=== PATIENT | male | born 1985 | race Caucasian/White ===

== ENCOUNTER 2018-07-23 16:08 | Emergency (ER) | payer MEDICAID ==
[2018-07-23] MEDS ORDERED: Sodium Chloride 0.9% 1,000 ML IV ONE (16:11)
[2018-07-23] MEDS ORDERED: Ondansetron 4 MG/2 ML SDV IVPUSH ONE (16:11)
--- NOTE | 2018-07-23 16:21 | EDM.PDOC ---
ED HPI GENERAL MEDICAL PROBLEM - General Stated Complaint: CAN'T KEEP NOTHING DOWN FOR A FEW DAYS Time Seen by Provider: 07/23/18 16:21 Source of Information: Reports: Patient History Limitations: Reports: No Limitations - History of Present Illness INITIAL COMMENTS - FREE TEXT/NARRATIVE: HISTORY AND PHYSICAL: History of present illness: Patient is a 33-year-old male who presents to the emergency room today with complaints of abdominal pain, nausea and vomiting 5 days. The mother states he takes multiple medications for his mental health problems, has not been able to take these medications due to his nausea and vomiting. She states that this morning he was able to eat his lunch without vomiting. He states he does feel somewhat better and rates his pain at a 2 out of 10. Mom expresses concern that he may have appendicitis. She states "this is how my appendicitis started". Patient reports he has not had a bowel movement in 4 days, which he attributes to having all to no food over the last several days. He denies any fever, chills, chest pain, shortness of breath or cough. Denies noting any diarrhea or blood in his stools. Recent injury, trauma or falls. Review of systems: As per history of present illness and below otherwise all systems reviewed and negative. Past medical history: As per history of present illness and as reviewed below otherwise noncontributory. Surgical history: As per history of present illness and as reviewed below otherwise noncontributory. Social history: No reported history of drug or alcohol abuse. Family history: As per history of present illness and as reviewed below otherwise noncontributory. Physical exam: General: Well-developed and well-nourished 33-year-old male. Alert and oriented. Nontoxic appearing and in no acute distress. HEENT: Atraumatic, normocephalic, pupils equal and reactive bilaterally, negative for conjunctival pallor or scleral icterus, mucous membranes moist, throat clear, neck supple, nontender, trachea midline. No drooling or trismus noted. No meningeal signs Lungs: Clear to auscultation, breath sounds equal bilaterally, chest nontender. Heart: S1S2, regular rate and rhythm without overt murmur Abdomen: Soft, nondistended, nontender. Negative for masses or hepatosplenomegaly. Negative for costovertebral tenderness. Pelvis: Stable nontender. Genitourinary: Deferred. Rectal: Deferred. Skin: Intact, warm, dry. No lesions or rashes noted. Extremities: Atraumatic, negative for cords or calf pain. Neurovascular unremarkable. Neuro: Awake, alert, oriented. Cranial nerves II through XII unremarkable. Cerebellum unremarkable. Motor and sensory unremarkable throughout. Exam nonfocal. Notes: Patient has an elevated white count of 20.10. I did order a CT of the abdomen and pelvis at this time. Other labs at this time are unremarkable. [facility] interventional radiology called: CT of the abdomen and pelvis shows a ruptured appendicitis with an interloop abscess measuring 3.[address] Claudio was consult did on this case. She states that she will be coming in to evaluate this patient. Patient and mother were made aware of the CT findings. 1820: Dr Claudio here to see patient. Cultures have been obtained. IV Zosyn ordered Diagnostics: CBC, CMP, UA, CT abdomen/pelvis, BC x2, lactic Therapeutics: IV fluid, Zofran, Zosyn Impression: Acute ruptured appendicitis Interloop abscess Definitive disposition and diagnosis as appropriate pending reevaluation and review of above. generalized abd Pain Score (Numeric/FACES): 2 - Related Data Allergies Allergy/AdvReac Type Severity Reaction Status Date / Time No Known Allergies Allergy Verified 07/23/18 16:39 Home Meds: Home Meds Citalopram [Citalopram HBr] 20 mg PO DAILY 07/23/18 [History] Mirtazapine [Remeron] 0.5 g PO DAILY 07/23/18 [History] Omeprazole 40 mg PO DAILY 07/23/18 [History] Sennosides/Docusate Sodium [Senna Laxative Tablet] 4 tab PO DAILY 07/23/18 [ History] cloZAPine [Clozaril] 400 mg PO BID 07/23/18 [History] ED ROS GENERAL - Review of Systems Review Of Systems: ROS reveals no pertinent complaints other than HPI. ED EXAM, GENERAL - Physical Exam Exam: See Below (See dictation) Course - Vital Signs Last Recorded V/S: Last Vital Signs Temp 97.6 F 07/23/18 16:40 Pulse 80 07/23/18 16:40 Resp 16 07/23/18 16:40 BP 125/65 07/23/18 16:40 Pulse Ox 98 07/23/18 16:40 - Orders/Labs/Meds Orders: Active Orders 24 hr Category Date Time Status Abdomen Pelvis w Cont [CT] Stat Exams 07/23/18 16:50 Taken CULTURE BLOOD [BC] Stat Lab 07/23/18 18:27 Ordered CULTURE BLOOD [BC] Stat Lab 07/23/18 18:27 Ordered LACTATE WITH REFLEX [BG] Stat Lab 07/23/18 18:27 Ordered Piperacillin/Tazobactam [Piperacil-Tazobact] 3.375 gm Med 07/23/18 18:27 Active Sodium Chloride 0.9% [Normal Saline] 50 ml IV ONETIME Blood Culture x2 Reflex Set [OM.PC] Stat Oth 07/23/18 18:27 Ordered Medication Orders Piperacillin Sod/Tazobactam (Sod 3.375 gm/ Sodium Chloride) 50 mls @ 100 mls/ hr IV ONETIME ONE Stop: 07/23/18 18:56 Last Admin: 07/23/18 18:41 Dose: 100 mls/hr Labs: Laboratory Tests 07/23/18 07/23/18 07/23/18 Range/Units 16:20 16:20 16:20 WBC 20.10 H (4.0-11.0) K/uL RBC 4.45 L (4.50-5.90) M/uL Hgb 13.0 (13.0-17.0) g/dL Hct 38.1 (38.0-50.0) % MCV 85.6 (80.0-98.0) fL MCH 29.2 (27.0-32.0) pg MCHC 34.1 (31.0-37.0) g/dL RDW Std Deviation 42.5 (28.0-62.0) fl RDW Coeff of Rufino 14 (11.0-15.0) % Plt Count 257 (150-400) K/uL MPV 8.90 (7.40-12.00) fL Add Manual Diff YES Neutrophils % (Manual) 65 (48.0-80.0) % Band Neutrophils % 8 % Lymphocytes % (Manual) 20 (16.0-40.0) % Monocytes % (Manual) 6 (0.0-15.0) % Eosinophils % (Manual) 1 (0.0-7.0) % Nucleated RBC % 0.0 /100WBC Absolute Seg Neuts 13.1 H (1.4-5.7) Band Neutrophils # 1.6 Lymphocytes # (Manual) 4.0 H (0.6-2.4) Monocytes # (Manual) 1.2 H (0.0-0.8) Eosinophils # (Manual) 0.2 (0.0-0.7) Nucleated RBCs # 0 K/uL Sodium 133 L (136-148) mmol/L Potassium 3.5 (3.5-5.1) mmol/L Chloride 96 L (98-107) mmol/L Carbon Dioxide 30.2 (21.0-32.0) mmol/L BUN 17 (7.0-18.0) mg/dL Creatinine 1.1 (0.8-1.3) mg/dL Est Cr Clr Drug Dosing TNP Estimated GFR (MDRD) > 60.0 ml/min Glucose 128 H (74-106) mg/dL Calcium 9.4 (8.5-10.1) mg/dL Total Bilirubin 0.3 (0.2-1.0) mg/dL AST 49 H (15-37) IU/L ALT 61 (14-63) IU/L Alkaline Phosphatase 168 H (46-116) U/L Total Protein 7.5 (6.4-8.2) g/dL Albumin 3.3 L (3.4-5.0) g/dL Globulin 4.2 H (2.0-3.5) g/dL Albumin/Globulin Ratio 0.8 L (1.3-2.8) Amylase 57 (25-115) U/L Lipase 261 (73-393) U/L Urine Color Urine Appearance Urine pH (5.0-8.0) Ur Specific [place] (1.001-1.035) Urine Protein (NEGATIVE) mg/dL Urine Glucose (UA) (NEGATIVE) mg/dL Urine Ketones (NEGATIVE) mg/dL Urine Occult Blood (NEGATIVE) Urine Nitrite (NEGATIVE) Urine Bilirubin (NEGATIVE) Urine Urobilinogen (<2.0) EU/dL Ur Leukocyte Esterase (NEGATIVE) Urine RBC (0-2/HPF) Urine WBC (0-5/HPF) Ur Epithelial Cells (NONE-FEW) Ur Renal Epithelial Cell Urine Bacteria (NEGATIVE) 07/23/18 Range/Units 18:10 WBC (4.0-11.0) K/uL RBC (4.50-5.90) M/uL Hgb (13.0-17.0) g/dL Hct (38.0-50.0) % MCV (80.0-98.0) fL MCH (27.0-32.0) pg MCHC (31.0-37.0) g/dL RDW Std Deviation (28.0-62.0) fl RDW Coeff of Rufino (11.0-15.0) % Plt Count (150-400) K/uL MPV (7.40-12.00) fL Add Manual Diff Neutrophils % (Manual) (48.0-80.0) % Band Neutrophils % % Lymphocytes % (Manual) (16.0-40.0) % Monocytes % (Manual) (0.0-15.0) % Eosinophils % (Manual) (0.0-7.0) % Nucleated RBC % /100WBC Absolute Seg Neuts (1.4-5.7) Band Neutrophils # Lymphocytes # (Manual) (0.6-2.4) Monocytes # (Manual) (0.0-0.8) Eosinophils # (Manual) (0.0-0.7) Nucleated RBCs # K/uL Sodium (136-148) mmol/L Potassium (3.5-5.1) mmol/L Chloride (98-107) mmol/L Carbon Dioxide (21.0-32.0) mmol/L BUN (7.0-18.0) mg/dL Creatinine (0.8-1.3) mg/dL Est Cr Clr Drug Dosing Estimated GFR (MDRD) ml/min Glucose (74-106) mg/dL Calcium (8.5-10.1) mg/dL Total Bilirubin (0.2-1.0) mg/dL AST (15-37) IU/L ALT (14-63) IU/L Alkaline Phosphatase (46-116) U/L Total Protein (6.4-8.2) g/dL Albumin (3.4-5.0) g/dL Globulin (2.0-3.5) g/dL Albumin/Globulin Ratio (1.3-2.8) Amylase (25-115) U/L Lipase (73-393) U/L Urine Color YELLOW Urine Appearance SLT CLOUDY Urine pH 7.0 (5.0-8.0) Ur Specific [place] <= 1.005 (1.001-1.035) Urine Protein NEGATIVE (NEGATIVE) mg/dL Urine Glucose (UA) NEGATIVE (NEGATIVE) mg/dL Urine Ketones NEGATIVE (NEGATIVE) mg/dL Urine Occult Blood LARGE H (NEGATIVE) Urine Nitrite POSITIVE H (NEGATIVE) Urine Bilirubin NEGATIVE (NEGATIVE) Urine Urobilinogen 1.0 (<2.0) EU/dL Ur Leukocyte Esterase TRACE (NEGATIVE) Urine RBC 15-20 (0-2/HPF) Urine WBC 5-10 (0-5/HPF) Ur Epithelial Cells OCCASIONAL (NONE-FEW) Ur Renal Epithelial Cell RARE Urine Bacteria 4+ H (NEGATIVE) Meds: Medications Generic Name Dose Route Start Last Admin Trade Name Freq PRN Reason Stop Dose Admin Piperacillin Sod/Tazobactam 50 mls @ 100 mls/hr 07/23/18 18:27 07/23/18 18:41 Sod 3.375 gm/ Sodium Chloride IV 07/23/18 18:56 100 mls/hr ONETIME ONE Administration Discontinued Medications Generic Name Dose Route Start Last Admin Trade Name Freq PRN Reason Stop Dose Admin Sodium Chloride 1,000 mls @ 999 mls/hr 07/23/18 16:11 07/23/18 16:37 Normal Saline IV 07/23/18 17:11 999 mls/hr STAT ONE Administration Iopamidol 100 ml 07/23/18 17:38 07/23/18 17:39 Isovue Multipack-370 (76%) IVPUSH 07/23/18 17:39 100 ml ONETIME STA Administration Ondansetron HCl 4 mg 07/23/18 16:11 07/23/18 16:37 Zofran IVPUSH 07/23/18 16:12 4 mg ONETIME ONE Administration Departure - Departure Time of Disposition: 18:45 Disposition: Still A Patient 32 Clinical Impression: Acute appendicitis with rupture - Discharge Information Referrals: PCP,None [Primary Care Provider] - - My Orders Last 24 Hours: My Active Orders 07/23/18 16:50 Abdomen Pelvis w Cont [CT] Stat 07/23/18 18:27 CULTURE BLOOD [BC] Stat CULTURE BLOOD [BC] Stat LACTATE WITH REFLEX [BG] Stat Piperacillin/Tazobactam [Piperacil-Tazobact] 3.375 gm Sodium Chloride 0.9% [ Normal Saline] 50 ml IV ONETIME Blood Culture x2 Reflex Set [OM.PC] Stat - Assessment/Plan Last 24 Hours: My Active Orders 07/23/18 16:50 Abdomen Pelvis w Cont [CT] Stat 07/23/18 18:27 CULTURE BLOOD [BC] Stat CULTURE BLOOD [BC] Stat LACTATE WITH REFLEX [BG] Stat Piperacillin/Tazobactam [Piperacil-Tazobact] 3.375 gm Sodium Chloride 0.9% [ Normal Saline] 50 ml IV ONETIME Blood Culture x2 Reflex Set [OM.PC] Stat
[2018-07-23 16:44] LABS: CHLORIDE,CL 96 mmol/L (98-107); SODIUM,NA 133 mmol/L (136-148)
[2018-07-23] MEDS ORDERED: Iopamidol 755 MG/ML 200 ML Multipack Bottle IVPUSH STA (17:38)
[2018-07-23] MEDS ORDERED: Piperacillin/Tazobactam 3.375 GM in Sodium Chloride 0.9% 50 ML IV ONE (18:27)
--- NOTE | 2018-07-23 19:24 | PCM.CONS ---
H&P History of Present Illness - General Date of Service: 07/23/18 Source of Information: Patient History Limitations: Reports: No Limitations - History of Present Illness Initial Comments - Free Text/Narative: Patient is a 33 year old male disabled secondary to schizoaffective mood disorder, bipolar, depression and anxiety who lives at home with his mother. He has had approximately one week of nausea vomiting and malaise. 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 He doesnt know if he had fever or chills. He states that he developed abdominal pain last night. This afternoon he felt better and ate. His last bowel movement was 3 days ago but he is still passing gas. He has never had abdominal surgery. His mother brought him with concerns that he had appendicitis. His vitals were stable on arrival. His WBC was 20K. CT scan shows ruptured appendicitis associated with phlegmon and a 3.6 x 3.7 intra-loop abscess. generalized abd Pain Score (Numeric/FACES): 2 - Related Data Allergies/Adverse Reactions: Allergies Allergy/AdvReac Type Severity Reaction Status Date / Time No Known Allergies Allergy Verified 07/23/18 16:39 Home Medications: Home Meds Citalopram [Citalopram HBr] 20 mg PO DAILY 07/23/18 [History] Mirtazapine [Remeron] 0.5 g PO DAILY 07/23/18 [History] Omeprazole 40 mg PO DAILY 07/23/18 [History] Sennosides/Docusate Sodium [Senna Laxative Tablet] 4 tab PO DAILY 07/23/18 [ History] cloZAPine [Clozaril] 400 mg PO BID 07/23/18 [History] Past Medical History Psychiatric History: Reports: Anxiety, Bipolar, Depression, Schizophrenia - Infectious Disease History Infectious Disease History: Reports: Chicken Pox - Past Surgical History Head Surgeries/Procedures: Reports: None HEENT Surgical History: Reports: None Cardiovascular Surgical History: Reports: None Respiratory Surgical History: Reports: None GI Surgical History: Reports: None Female Surgical History: Reports: None Male Surgical History: Reports: None Endocrine Surgical History: Reports: None Neurological Surgical History: Reports: None Musculoskeletal Surgical History: Reports: None Oncologic Surgical History: Reports: None Dermatological Surgical History: Reports: None Social & Family History - Family History Family Medical History: Noncontributory - Tobacco Use Smoking Status *Q: Current Every Day Smoker Years of Tobacco use: 8 Packs/Tins Daily: 1 - Caffeine Use Caffeine Use: Reports: Soda - Recreational Drug Use Recreational Drug Use: No H&P Review of Systems - Review of Systems: Review Of Systems: ROS reveals no pertinent complaints other than HPI. Exam - Exam Exam: See Below - Vital Signs Vital Signs: Last Vital Signs Temp 37.2 C 07/23/18 19:12 Pulse 89 07/23/18 19:12 Resp 17 07/23/18 19:12 BP 124/77 07/23/18 19:12 Pulse Ox 97 07/23/18 19:12 Weight: 76.204 kg - Exam General: Alert, Oriented HEENT: Conjunctiva Clear, Mucosa Moist & [place], Posterior Pharynx Clear Neck: Supple, Trachea Midline Lungs: Clear to Auscultation, Normal Respiratory Effort Cardiovascular: Regular Rate, Regular Rhythm GI/Abdominal Exam: Guarding (lower abdomen), Rigid (lower abdomen ), Tender ( Lower abdomen ), Other (Firm tender mass along lower midline consistent with radiologic findings ). No: Distended, Rebound - Patient Data Lab Results Last 24 hrs: Laboratory Results - last 24 hr 07/23/18 07/23/18 07/23/18 Range/Units 16:20 16:20 16:20 WBC 20.10 H (4.0-11.0) K/uL RBC 4.45 L (4.50-5.90) M/uL Hgb 13.0 (13.0-17.0) g/dL Hct 38.1 (38.0-50.0) % MCV 85.6 (80.0-98.0) fL MCH 29.2 (27.0-32.0) pg MCHC 34.1 (31.0-37.0) g/dL RDW Std Deviation 42.5 (28.0-62.0) fl RDW Coeff of Rufino 14 (11.0-15.0) % Plt Count 257 (150-400) K/uL MPV 8.90 (7.40-12.00) fL Add Manual Diff YES Neutrophils % (Manual) 65 (48.0-80.0) % Band Neutrophils % 8 % Lymphocytes % (Manual) 20 (16.0-40.0) % Monocytes % (Manual) 6 (0.0-15.0) % Eosinophils % (Manual) 1 (0.0-7.0) % Nucleated RBC % 0.0 /100WBC Absolute Seg Neuts 13.1 H (1.4-5.7) Band Neutrophils # 1.6 Lymphocytes # (Manual) 4.0 H (0.6-2.4) Monocytes # (Manual) 1.2 H (0.0-0.8) Eosinophils # (Manual) 0.2 (0.0-0.7) Nucleated RBCs # 0 K/uL Lactate (0.20-2.00) mmol/L Sodium 133 L (136-148) mmol/L Potassium 3.5 (3.5-5.1) mmol/L Chloride 96 L (98-107) mmol/L Carbon Dioxide 30.2 (21.0-32.0) mmol/L BUN 17 (7.0-18.0) mg/dL Creatinine 1.1 (0.8-1.3) mg/dL Est Cr Clr Drug Dosing TNP Estimated GFR (MDRD) > 60.0 ml/min Glucose 128 H (74-106) mg/dL Calcium 9.4 (8.5-10.1) mg/dL Total Bilirubin 0.3 (0.2-1.0) mg/dL AST 49 H (15-37) IU/L ALT 61 (14-63) IU/L Alkaline Phosphatase 168 H (46-116) U/L Total Protein 7.5 (6.4-8.2) g/dL Albumin 3.3 L (3.4-5.0) g/dL Globulin 4.2 H (2.0-3.5) g/dL Albumin/Globulin Ratio 0.8 L (1.3-2.8) Amylase 57 (25-115) U/L Lipase 261 (73-393) U/L Urine Color Urine Appearance Urine pH (5.0-8.0) Ur Specific [place] (1.001-1.035) Urine Protein (NEGATIVE) mg/dL Urine Glucose (UA) (NEGATIVE) mg/dL Urine Ketones (NEGATIVE) mg/dL Urine Occult Blood (NEGATIVE) Urine Nitrite (NEGATIVE) Urine Bilirubin (NEGATIVE) Urine Urobilinogen (<2.0) EU/dL Ur Leukocyte Esterase (NEGATIVE) Urine RBC (0-2/HPF) Urine WBC (0-5/HPF) Ur Epithelial Cells (NONE-FEW) Ur Renal Epithelial Cell Urine Bacteria (NEGATIVE) 07/23/18 07/23/18 Range/Units 18:10 19:00 WBC (4.0-11.0) K/uL RBC (4.50-5.90) M/uL Hgb (13.0-17.0) g/dL Hct (38.0-50.0) % MCV (80.0-98.0) fL MCH (27.0-32.0) pg MCHC (31.0-37.0) g/dL RDW Std Deviation (28.0-62.0) fl RDW Coeff of Rufino (11.0-15.0) % Plt Count (150-400) K/uL MPV (7.40-12.00) fL Add Manual Diff Neutrophils % (Manual) (48.0-80.0) % Band Neutrophils % % Lymphocytes % (Manual) (16.0-40.0) % Monocytes % (Manual) (0.0-15.0) % Eosinophils % (Manual) (0.0-7.0) % Nucleated RBC % /100WBC Absolute Seg Neuts (1.4-5.7) Band Neutrophils # Lymphocytes # (Manual) (0.6-2.4) Monocytes # (Manual) (0.0-0.8) Eosinophils # (Manual) (0.0-0.7) Nucleated RBCs # K/uL Lactate 1.0 (0.20-2.00) mmol/L Sodium (136-148) mmol/L Potassium (3.5-5.1) mmol/L Chloride (98-107) mmol/L Carbon Dioxide (21.0-32.0) mmol/L BUN (7.0-18.0) mg/dL Creatinine (0.8-1.3) mg/dL Est Cr Clr Drug Dosing Estimated GFR (MDRD) ml/min Glucose (74-106) mg/dL Calcium (8.5-10.1) mg/dL Total Bilirubin (0.2-1.0) mg/dL AST (15-37) IU/L ALT (14-63) IU/L Alkaline Phosphatase (46-116) U/L Total Protein (6.4-8.2) g/dL Albumin (3.4-5.0) g/dL Globulin (2.0-3.5) g/dL Albumin/Globulin Ratio (1.3-2.8) Amylase (25-115) U/L Lipase (73-393) U/L Urine Color YELLOW Urine Appearance SLT CLOUDY Urine pH 7.0 (5.0-8.0) Ur Specific [place] <= 1.005 (1.001-1.035) Urine Protein NEGATIVE (NEGATIVE) mg/dL Urine Glucose (UA) NEGATIVE (NEGATIVE) mg/dL Urine Ketones NEGATIVE (NEGATIVE) mg/dL Urine Occult Blood LARGE H (NEGATIVE) Urine Nitrite POSITIVE H (NEGATIVE) Urine Bilirubin NEGATIVE (NEGATIVE) Urine Urobilinogen 1.0 (<2.0) EU/dL Ur Leukocyte Esterase TRACE (NEGATIVE) Urine RBC 15-20 (0-2/HPF) Urine WBC 5-10 (0-5/HPF) Ur Epithelial Cells OCCASIONAL (NONE-FEW) Ur Renal Epithelial Cell RARE Urine Bacteria 4+ H (NEGATIVE) Result Diagrams: 07/23/18 16:20 07/23/18 16:20 Consult PN Assessment/Plan (1) Intra-abdominal abscess SNOMED Code(s): 58376510 Code(s): K65.1 - PERITONEAL ABSCESS Current Visit: Yes (2) Acute appendicitis with rupture SNOMED Code(s): 94088041, 21332549 Code(s): K35.2 - ACUTE APPENDICITIS WITH GENERALIZED PERITONITIS Current Visit: Yes Problem List Initiated/Reviewed/Updated: Yes Plan: The patient has ruptured appendicitis associated with a large amount of inflammation and an intra-abdominal abscess. I explained these findings to his mother and him. The abscess appears to be in a difficult location to drain which may make surgery his only option. However, we do not have an interventional radiologist here at the time to asses this. He will most likely require an open procedure in order to get to the appendix, take down adhesions and looped bowel, as well as drain the abscess. He is at high risk of developing sepsis afterwards. Given the potential for an interventional procedure and/or the need for ICU care post operatively, I feel he would be better served in a facility with greater resources. I discussed this with the family. They verbalized understanding and agree with the above plan.
[2018-07-23] MEDS ORDERED: Lactated Ringers 1,000 ML IV SCH (19:30)
--- NOTE | 2018-07-25 11:16 | CT ---
EXAM DATE: 07/23/18 PATIENT'S AGE: 33 Patient: WHITNEY BHATTI Facility: [place], [place] Site . Site : 1985 Study: CT Abdomen/Pelvis [id number]/16/2018 5:42:32 PM Ordering Physician: Doctor Tanner Final Report: INDICATION: 33 year-old male. Abdominal pain. TECHNIQUE: Contrast-enhanced CT of the abdomen and pelvis. FINDINGS: There are CT changes compatible with acute ruptured appendicitis. Specifically the appendix is distended with mucosal enhancement and contains 2 appendicoliths proximally best seen on image 112 series 2. There is an interloop abscess, image 111 series 201 and image 28 series 203 measuring approximately 3.6 x 3.7 cm. Specifically there is interloop fluid and a few small dots of free air. This would be technically challenging to drained percutaneously giving the surrounding bowel loops. Therefore surgical consultation is warranted. Clear included lung bases. The liver, spleen, pancreas, adrenal glands, and both kidneys are normal. Largely contracted gallbladder. Normal caliber abdominal aorta and iliac arteries. Normal inferior vena cava. Particulate matter in the stomach likely from a recently ingested meal. There is no evidence for tia small or large bowel obstruction. There is the suggestion of a localized ileus within the right lower quadrant related to the acute ruptured appendicitis. The urinary bladder, prostate, and seminal vesicles are normal. Calcified pelvic phleboliths. Normal included skeleton. These findings were called to and discussed with nurse practitioner Laine Wilde at 5:59 pm. IMPRESSION: 1. Acute ruptured appendicitis with an interloop abscess measuring approximately 3.6 x 3.7 cm. Mild localized ileus within the right lower quadrant. Surgical consultation is warranted. 2. Particulate matter in the stomach likely from a recently ingested meal. This therefore may explain the largely contracted gallbladder. Please note that all CT scans at this facility use dose modulation, iterative reconstruction, and/or weight-based dosing when appropriate to reduce radiation dose to as low as reasonably achievable. Dictated by Hola Juárez MD @ Jul 23 2018 5:52PM (Electronic Signature) Report Signed by Proxy. OG
== END 2018-07-23 20:56 ==
LOC: MW.ED 16:08
DX: K35.3 Acute appendicitis with localized peritonitis (principal); N39.0 Urinary tract infection, site not specified
CPT/HCPCS: 36415; 74177; 80053; 81001; 82150; 83605; 83690; 85025; 87040; 87086; 87088; 87186; 96361; 96365; 96367; 96375; 99285; J2405; J2543; J7040; J7050; J7120; Q9967